=== PATIENT | female | born 1990 | race Caucasian/White ===

== ENCOUNTER 2022-05-14 14:54 | Emergency (ER) | payer OTHER ==
[~2022-05-14] VITALS: Ht 167.6 cm; Wt 49.0 kg
[2022-05-14] MEDS ORDERED: PROVERA10 MG PO (15:38)
== END 2022-05-14 15:56 | disposition home or self-care (01) ==
LOC: FSED 14:58
DX: N93.8 Other specified abnormal uterine and vaginal bleeding (principal); N80.9 Endometriosis, unspecified; I73.00 Raynaud's syndrome without gangrene
CPT/HCPCS: 81003; 81025; 99283